=== PATIENT | female | born 1990 | race African-American/Black ===

== ENCOUNTER 2023-11-09 02:38 | Emergency (ER) | payer SELFPAY ==
[~2023-11-09] VITALS: Ht 167.6 cm; Wt 62.1 kg
[2023-11-09 02:44] VITALS: TEMP 98.1
[2023-11-09] MEDS ORDERED: LIDOCAINE 1%-EPI 1:100,000 20 ML VIAL ONE (02:47)
[2023-11-09] MEDS ORDERED: ACETAMINOPHEN ES 500 MG TABLET ONE (02:58)
[2023-11-09] MEDS: ACETAMINOPHEN ES 500 MG TABLET PO ONE (03:01)
[2023-11-09] MEDS ORDERED: TDAP [DIPH/PERTUSSIS/TET] 0.5 ML VIAL IM ONE (03:33)
[2023-11-09] MEDS: TDAP [DIPH/PERTUSSIS/TET] 0.5 ML VIAL IM ONE (03:42)
[2023-11-09] MEDS ORDERED: KETOROLAC TROMETHAMINE INJ 30 MG/ML VIAL ONE (04:19)
[2023-11-09] MEDS: KETOROLAC TROMETHAMINE INJ 60 MG/2 ML VIAL IM ONE (04:26)
[2023-11-09 06:04] VITALS: BP 118/71; O2SAT 98
== END 2023-11-09 06:05 | disposition home or self-care (01) ==
LOC: ER 02:51
DX: S01.111A Laceration without foreign body of right eyelid and periocular area, initial encounter (principal); S50.311A Abrasion of right elbow, initial encounter; S29.9XXA Unspecified injury of thorax, initial encounter; S09.90XA Unspecified injury of head, initial encounter; V89.2XXA Person injured in unspecified motor-vehicle accident, traffic, initial encounter; Y93.89 Activity, other specified; Y92.89 Other specified places as the place of occurrence of the external cause; Y99.8 Other external cause status
CPT/HCPCS: 12013; 70450; 70486; 71250; 90471; 90715; 96372; 99285; J1885; J3490

== ENCOUNTER 2023-11-13 14:37 | Emergency (ER) | payer MEDICAID ==
[~2023-11-13] VITALS: Ht 167.6 cm; Wt 59.0 kg
[2023-11-13 15:06] VITALS: BP 118/70; TEMP 98.2
[2023-11-13 15:16] VITALS: O2SAT 98
== END 2023-11-13 15:16 | disposition home or self-care (01) ==
LOC: ER 14:58
DX: S01.111D Laceration without foreign body of right eyelid and periocular area, subsequent encounter (principal); Z48.02 Encounter for removal of sutures; Z88.0 Allergy status to penicillin; X58.XXXD Exposure to other specified factors, subsequent encounter